=== PATIENT | female | born 1995 | race Caucasian/White ===

== ENCOUNTER 2018-09-28 19:01 | Emergency (ER) | payer MEDICAID ==
--- NOTE | 2018-09-28 19:46 | ED Physician Chart ---
ED Chief Complaint/HPI - Patient Information Date Seen:: 09/28/18 Time Seen:: 19:38 Chief Complaint:: abd pain History of Present Illness:: 23 yr old female with abd pain nausea for 3 days and abdomen feeling hard with possible mass pt denies trauma surgeries Allergies:: Allergies Allergy/AdvReac Type Severity Reaction Status Date / Time No Known Allergies Allergy Verified 09/28/18 19:23 Vitals:: Vital Signs - 8 hr 09/28/18 19:25 Temp 99.0 F HR 99 RR 17 BP 155/92 O2 Sat % 95 ED Review of Systems - Review of Systems General/Constitutional: No fever Skin: No skin lesions Head: No headache Eyes: No loss of vision ENT: No earache Neck: No neck pain Cardio Vascular: No chest pain Pulmonary: No SOB GI: Nausea, No vomiting, Pain, Other G/U: No dysuria [employer]: No vaginal discharge Musculoskeletal: No bone or joint pain Endocrine: No polyuria Psychiatric: Anxiety Hematopoietic: No bruising Allergic/Immuno: No urticaria Neurological: No syncope ED Past Medical History - Past Medical History Past Medical History: No significant medical hx Family Medical History - Family Member Mother Living Status: Still Living ED Physical Exam - Physical Examination General/Constitutional: Well-developed, well-nourished Head: Atraumatic Eyes: Lids, conjuctiva normal Skin: Nl inspection Respiratory: Nl effort/Exclusion Cardio Vascular: RRR Other GI comments:: abd tenderness and fullness : No CVA tenderness Neuro/Psych: Alert/oriented ED Labs/Radiology/EKG Results - Lab Results Results: Laboratory Tests 09/28/18 19:24 POC Ur Test Positive ED Assessment - Assessment General Assessment: abd pain ED Septic Shock - . Is Septic Shock (SBP<90, OR Lactate>4 mmol\L) present?: No - <6hrs of presentation: Vital Signs: Vital Signs - 8 hr 09/28/18 19:25 Temp 99.0 F HR 99 RR 17 BP 155/92 O2 Sat % 95 ED Reassessment (Disposition) - Reassessment Reassessment:: abd pain - Diagnosis Diagnosis:: abd pain - Patient Disposition Discharge/Transfer:: Acute Care w/in this hosp Admitted to:: Med/Surg Condition at Disposition:: Stable
[2018-09-28 21:36] LABS: % EOSINOPHILS 0.6 % (0.0-5.0); % LYMPHOCYTES 28.8 % (20.0-50.0); % MONOCYTES 4.7 % (2.0-10.0); % NEUTROPHILS 65.9 % (40.0-80.0); EOSINOPHILE ABSOLUTE 0.1 Th/cmm (0.1-0.4); HEMATOCRIT 40.9 % (41.0-60); HEMOGLOBIN 13.5 gm/dL (12-16); LYMPHOCYTE ABSOLUTE 3.3 Th/cmm (1.5-3.0); MEAN CELL VOLUME 78.4 fl (81-100); MEAN CORPUSCULAR HEMOGLOBIN 25.7 pg (27.0-31.0); MEAN CORPUSCULAR HGB CONC 32.9 pg (28.0-36.0); MEAN PLATELET VOLUME 9.2 fl; MONOCYTE ABSOLUTE 0.5 Th/cmm (0.3-1.0); NEUTROPHILE ABSOLUTE 7.6 Th/cmm (1.8-8.0); PLATELET COUNT 371 Th/cmm (150-400); RED BLOOD COUNT 5.22 Mil/cmm (3.80-5.10); RED CELL DISTRIBUTION WIDTH 12.8 % (11.5-20.0); WHITE BLOOD COUNT 11.5 Th/cmm (4.8-10.8)
[2018-09-28 21:54] LABS: ALB/GLOB RATIO 0.8 (1.0-1.8); ALBUMIN 3.2 gm/dL (3.7-5.3); ALKALINE PHOSPHATASE 56 U/L (34-104); ANION GAP 14.9 (7.0-16.0); BILIRUBIN,TOTAL 0.3 mg/dL (0.3-1.0); BUN - UREA NITROGEN 9 mg/dL (7-25); CALCIUM SERUM 9.5 mg/dL (8.6-10.3); CARBON DIOXIDE 20.8 mEq/L (21.0-31.0); CHLORIDE 101 mEq/L (98-107); CREATININE - SERUM 0.5 mg/dL (0.6-1.2); GFR AFRICAN-AMERICAN > 60.0 ml/min (>90); GFR NON AFRICAN-AMERICAN > 60.0 ml/min; GLUCOSE 192 mg/dL (70-105); POTASSIUM SERUM 3.7 mEq/L (3.5-5.1); SGOT 17 U/L (13-39); SGPT/ALT 14 U/L (7-52); SODIUM SERUM 133 mEq/L (136-145); TOTAL PROTEIN,SERUM 7.2 gm/dL (6.0-8.3)
[2018-09-28 21:56] LABS: ALB/GLOB RATIO 0.9 (1.0-1.8); ALBUMIN 3.3 gm/dL (3.7-5.3); BILIRUBIN,TOTAL 0.3 mg/dL (0.3-1.0); TOTAL PROTEIN,SERUM 7.1 gm/dL (6.0-8.3)
[2018-09-28 21:57] LABS: BILIRUBIN,DIRECT 0.04 mg/dL (0.0-0.2)
--- NOTE | 2018-09-29 09:00 | Diagnostic Imaging Report ---
Ultrasound abdomen HISTORY: female with abdominal pain COMPARISON: OB ultrasound the same day Technique: Sonography of the abdomen was performed in multiple planes. FINDINGS: Exam is markedly limited due to patient's medical condition and body habitus. There is suboptimal assessment of the liver. Assessment for focal lesions is limited. The liver demonstrates increased echogenicity. There are small echogenic foci in the gallbladder suggestive of small gallstones. No gallbladder wall thickening or pericholecystic fluid. The common bile duct was not visualized. Evaluation of the pancreas is limited due to bowel gas. Limited evaluation of the kidneys demonstrates mild bilateral hydronephrosis. The right kidney measures 11.9 x 6.2 cm the left kidney measures 13.3 x 7.5 cm. No discrete focal lesions. At the spleen measures 12.6 cm. IMPRESSION: Limited exam due to bowel gas and body habitus. Mild bilateral hydronephrosis which may be due to the patient's gravid status. Suggestion of small gallstones. Clinical correlation and short-term repeat exam is recommended. Increased echogenicity of the liver which may be due to underlying fatty infiltration. Mild increased left renal size, nonspecific. Borderline prominent spleen.
--- NOTE | 2018-09-29 09:03 | Diagnostic Imaging Report ---
Ultrasound OB, limited History: Provided history of 34 week 2 day female. Abdominal mass. Comparison: Ultrasound abdomen the same day. Technique/procedure: Sonography of the pelvis was performed in multiple planes transabdominally. Findings: Single live intrauterine gestation is noted with cephalic presentation. The cervix appears closed. Cervical measurements were not obtained. The placenta appears posterior in position. Amniotic fluid index is 14.4, within the range of normal. The heart rate was 153 beats per minutes. Note, detailed anatomical survey was not performed. IMPRESSION: Limited exam demonstrating a single live intrauterine gestation. Detailed anatomical survey was not performed. Please correlate clinically. Given clinical history of possible mass, follow up detailed OB ultrasound or other exam such as MRI may be obtained for further assessment.
== END 2018-09-28 22:42 | disposition home or self-care (01) ==
LOC: ER 19:01
DX: O26.893 Other specified pregnancy related conditions, third trimester (principal); R10.9 Unspecified abdominal pain; R11.0 Nausea; Z3A.34 34 weeks gestation of pregnancy
CPT/HCPCS: 36415-UA; 76700-TC; 76815-TC; 80053-TC; 80076-TC; 81025-TC; 83036-90; 85025-TC